=== PATIENT | female | born 2000 | race Caucasian/White ===

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

== ENCOUNTER 2020-01-10 15:11 | Inpatient (IN) | payer MEDICAID, SELFPAY ==
[2020-01-10 15:15] VITALS: BP 117/85; PULSE 108; RESP 14; TEMP 36.9; O2SAT 98; BMI 32.6
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
[2020-01-10 17:37] LABS: Add Urine Microscopic? NO
[2020-01-10 17:52] LABS: Bilirubin Urine Neg (Negative); Blood Urine Neg (Negative); Glucose Urine UA Norm (Normal); Ketones Urine 1+ (Negative); Leukocyte Esterase Urine Negative (Negative); Nitrate Urine Negative (Negative); Protein Urine Neg (Negative); Specific Gravity, Urine 1.015 (1.005-1.030); Urine Appearance Clear (CLEAR); Urine Color Yellow (Yellow); Urobilinogen Urine 1 mg/dL (Negative); pH Urine 6 (5-7)
[2020-01-10 18:00] LABS: Amphetamines Screen Urine Negative (Negative); Barbiturates Screen Urine Negative (Negative); Benzodiazepines Screen Urine Negative (Negative); Cocaine Screen Urine Negative (Negative); Opiate Screen Urine Negative (Negative); PCP Screen Urine Negative (Negative); THC Screen Urine Negative (Negative)
[2020-01-10 18:15] LABS: Alanine Aminotransferase 35 U/L (0-33); Albumin Level 4.5 g/dL (3.5-5.2); Alkaline Phosphatase 72 IU/L (35-105); Anion Gap 16.9 (5-19); Aspartate Amino Transferase 32 U/L (0-32); Blood Urea Nitrogen 9 mg/dL (6-20); Calcium 9.4 mg/dL (8.5-10.5); Carbon Dioxide 22 mmol/L (22-29); Chloride 105 mmol/L (98-107); Globulin 2.3 g/dL (1.3-4.6); Glomerular Filtration Rate 158.9 mL/min (90-130); Glucose 95 mg/dL (65-115); Osmolality Calculated 288 mOsm/kg (285-295); Potassium 3.9 mmol/L (3.5-5.1); Sodium 140 mmol/L (136-145); Total Bilirubin 0.3 mg/dL (0.15-1.2); Total Protein 6.8 g/dL (6.6-8.7)
[2020-01-10 18:20] LABS: Acetaminophen < 5.0 ug/mL (10-30); Alcohol Level < 10 mg/dL (0-10); Salicylate < 0.3 mg/dL (3-10)
[2020-01-10 18:28] LABS: Basophils % 0.4 %; Eosinophils # 0.2 10^3/uL (0.0-0.8); Eosinophils % 2.5 %; Hematocrit 39.5 % (37.0-47.0); Hemoglobin 12.7 g/dL (11.5-15.3); Lymphocytes # 3.7 10^3/uL (1.5-6.5); Lymphocytes % 43.1 %; Mean Corpuscular HGB Conc 32.2 g/dL (30.0-36.0); Mean Corpuscular Hemoglobin 29.8 pg (28.0-34.0); Mean Corpuscular Volume 92.7 fL (81-99); Mean Platelet Volume 11.5 fL (7.4-10.4); Monocytes # 0.5 10^3/uL (0.2-0.9); Monocytes % 5.4 %; Neutrophils # 4.09 10^3/uL (1.8-8.0); Neutrophils % 48.2 %; Nucleated Red Blood Cells % 0 %; Platelet Count 232 10^3/cmm (130-400); Red Blood Count 4.26 10^6/uL (4.1-5.3); Red Cell Distribution Width 12.5 % (12.1-15.1); White Blood Count 8.5 10^3/uL (4.5-13.0)
[2020-01-10 19:06] VITALS: PULSE 133; O2SAT 98
[2020-01-10 19:46] LABS: HCG Qualitative Urine. Negative (Negative)
[2020-01-10 20:46] VITALS: BP 118/85; PULSE 115; O2SAT 96
[2020-01-10 20:52] VITALS: BP 118/85; PULSE 115; O2SAT 97
[2020-01-10 22:00] VITALS: BP 135/79; PULSE 100; RESP 18; TEMP 36.9; O2SAT 97
--- NOTE | 2020-01-11 00:57 | PC.NURSE ---
Skin assessment revealed scar on left knee and scars on top of both feet.
[2020-01-11 06:00] VITALS: BP 120/74; PULSE 79; RESP 15; TEMP 36.4; O2SAT 94
[2020-01-11] MEDS: acetaminophen 325 mg Tablet 650 MG PO (07:45)
[2020-01-11] MEDS: cetirizine 10 mg Tablet PO (08:19)
[2020-01-11] MEDS: famotidine 20 mg Tablet PO (08:19)
[2020-01-11] MEDS: divalproex DR 500 mg Tablet PO ×2 (08:19→16:51)
[2020-01-11] MEDS: risperiDONE 2 mg Tablet PO ×2 (08:19→16:51)
[2020-01-11] MEDS: BuSPIRONE 10 mg Tablet PO ×2 (08:19→16:50)
[2020-01-11] MEDS: venlafaxine ER (24HR) 150 mg Capsule PO (08:19)
[2020-01-11 13:28] VITALS: BP 117/78; PULSE 96; RESP 18; TEMP 36.9
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
[2020-01-11] MEDS: loperamide 2 mg Capsule PO (17:07)
--- NOTE | 2020-01-11 17:32 | PC.NURSE ---
PATIENT C/O DIARRHEA. OBSERVED LOOSE STOOL IN TOILET. IMODIUM 2MG ADMINISTERED. WILL MONITOR FOR DRUG EFFECTIVENESS
[2020-01-11 19:50] VITALS: BP 108/74; PULSE 77; RESP 16; TEMP 36.9; O2SAT 95
[2020-01-12 06:00] VITALS: BP 107/72; PULSE 83; RESP 17; TEMP 37.1; O2SAT 96
[2020-01-12] MEDS: famotidine 20 mg Tablet PO (07:45)
[2020-01-12] MEDS: BuSPIRONE 10 mg Tablet PO ×2 (07:45→21:03)
[2020-01-12] MEDS: divalproex DR 500 mg Tablet PO ×2 (07:45→21:03)
[2020-01-12] MEDS: risperiDONE 2 mg Tablet PO ×2 (07:46→21:03)
[2020-01-12] MEDS: cetirizine 10 mg Tablet PO (07:46)
[2020-01-12] MEDS: venlafaxine ER (24HR) 150 mg Capsule PO (07:46)
[2020-01-12 12:39] VITALS: BP 130/84; PULSE 94; RESP 18; TEMP 36.9; O2SAT 97
--- NOTE | 2020-01-12 15:08 | P.PN_ITS ---
Subjective NPU Subjective: Interval history: Jeannette presents today continuing to have absolutely no insight into the magnitude of her behavior and its impact. She continued to lament about not being able to go home sooner and not seeming to grasp this sheet writer's cystoscopy explained to her that given that the intensity of her behavior it is going to require us taking her time and looking at her medication and making sure that we are creating an environment that she can make better choices. We discussed that we would get a trough level Depakote this evening and increase her Depakote if it is not deeply therapeutic. Additionally will be discussing the risk benefits alternatives of increasing her risk recall with her guardian. Mental Status Exam MSE Comments: This is an obese white female with limited dress, grooming and eye contact. No abnormal movements except for mild psychomotor retardation. Cooperative with exam in no acute distress. Speech was normal rate and volume with some slight dysarthria, and childlike. Mood described as good, affect congruent. Thought process organized. Thought content: Patient denied suicidal or homicidal ideations, there were no delusions reported or noted, she denied any auditory or visual 6. Attention and concentration appeared intact and mem ory was unreliable but none were formally tested. She is alert and oriented x3. Insight and judgment are impaired, impulse control is impaired and intellectual ability is impaired. Vitals/I&O/Wt Last Vital Signs Temp 98.9 F 01/12/20 20:00 Pulse 65 01/12/20 20:00 Resp 17 01/12/20 20:00 BP 104/70 01/12/20 20:00 Pulse Ox 96 01/12/20 20:00 Data NPU : 01/10/20 18:00 01/10/20 17:15 A&P Additional A&P Information (1) Laceration of skin of knee: (2) Environmental allergies: (3) Adjustment disorder with mixed disturbance of emotions and conduct: (4) Impulse control disorder in adult: (5) Intellectual disability: This is a 19-year-old white female with significant intellectual disability and limited impulse control with intermittent explosive presentation who presents reporting that she is fine now and desiring to be discharged. 1. Continue current medication. We will get Depakote level prior to her 9 PM dosing tonight and increase her Depakote in the morning if not clearly therapeutic and also discussed increasing the Risperdal with her guardian. 2. Encouraged individual, group and milieu therapy. 3. Continue every 15 minute checks for safety. 4. Evaluate and make changes to allow for safe return to the [facility]. Involuntary Hold Information 96 Hour Hold: 96 Hour Involuntary Admission: No 96 Hour Hold Ending Date: 12/10/19 96 Hour Hold Ending Time: 18:30 Attestations NPU Medical Necessity Statement*: Inpatient hospitalization is medically necessary and the clinically appropriate intervention at this time. We will monitor medications and make changes as indicated. Likely length of stay 2-4 days. 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
[2020-01-12 20:00] VITALS: BP 104/70; PULSE 65; RESP 17; TEMP 37.2; O2SAT 96
[2020-01-12 20:59] LABS: Valproic Acid Level 58.3 ug/mL (50-100)
[2020-01-12] MEDS: trazodone 50 mg Tablet PO (21:03)
[2020-01-13 06:00] VITALS: BP 103/65; PULSE 73; RESP 17; TEMP 37.3; O2SAT 95
[2020-01-13] MEDS: venlafaxine ER (24HR) 150 mg Capsule PO (07:58)
[2020-01-13] MEDS: famotidine 20 mg Tablet PO (07:58)
[2020-01-13] MEDS: risperiDONE 2 mg Tablet PO ×2 (07:59→19:48)
[2020-01-13] MEDS: cetirizine 10 mg Tablet PO (07:59)
[2020-01-13] MEDS: BuSPIRONE 10 mg Tablet PO ×2 (07:59→19:48)
[2020-01-13] MEDS: divalproex DR 500 mg Tablet 1000 MG PO (07:59)
[2020-01-13 14:00] VITALS: BP 131/82; PULSE 98; RESP 17; TEMP 36.3; O2SAT 97
--- NOTE | 2020-01-13 15:34 | P.PN_ITS ---
Subjective NPU Subjective: Interval history: Jeannette presents today much as she has every day with no real signs of any distress only indicators of her level of diminished insight. She continues asked if she can be discharged and why she has to stay another day. Each day I recounted the transgressions of her prehospitalization and the concerns that her [facility]L might have for safety given her behavior. We discussed the fact that the plan is to maximize her medication while here and that thus far we have increased her Depakote and plan to discuss increasing her risk for daughter with her guarding. She is eating and sleeping fine. Mental Status Exam MSE Comments: This is an obese white female with adequate dress, grooming and eye contact. No abnormal movements. Cooperative with exam in no acute distress. Speech was normal rate and volume with some slight dysarthria, and childlike. Mood described as good, affect congruent. Thought process organized. Thought content: Patient denied suicidal or homicidal ideations, there were no delusions reported or noted, she denied any auditory or visual hallucinations. Attention and concentration appeared intact and memory was unreliable but none were formally tested. She is alert and oriented x3. Insight and judgment are impaired, impulse control is impaired and intellectual ability is impaired. Vitals/I&O/Wt Last Vital Signs Temp 98.3 F 01/13/20 20:23 Pulse 75 01/13/20 20:23 Resp 17 01/13/20 20:23 BP 100/66 01/13/20 20:23 Pulse Ox 95 01/13/20 20:23 Data NPU : 01/10/20 18:00 01/10/20 17:15 A&P Additional A&P Information (1) Laceration of skin of knee: (2) Environmental allergies: (3) Adjustment disorder with mixed disturbance of emotions and conduct: (4) Impulse control disorder in adult: (5) Intellectual disability: This is a 19-year-old white female with significant intellectual disability and limited impulse control with intermittent explosive presentation who presents reporting that she is fine now and desiring to be discharged. 1. Continue current medication. Depakote level slightly therapeutic, we will increase her dose to 1000 mg in the morning and 500 mg at night and discuss increasing the Risperdal with her guardian. 2. Encouraged individual, group and milieu 3. Continue every 15 minute checks for safety. 4. Evaluate and make changes to allow for safe return to the IS[facility]. Involuntary Hold Information 96 Hour Hold: 96 Hour Involuntary Admission: No 96 Hour Hold Ending Date: 12/10/19 96 Hour Hold Ending Time: 18:30 Attestations NPU Medical Necessity Statement*: Inpatient hospitalization is medically necessary and the clinically appropriate intervention at this time. We will monitor med ications and make changes as indicated. Likely length of stay 2-3 days. 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
[2020-01-13] MEDS: divalproex DR 500 mg Tablet PO (19:48)
[2020-01-13] MEDS: trazodone 50 mg Tablet PO (19:49)
[2020-01-13 20:23] VITALS: BP 100/66; PULSE 75; RESP 17; TEMP 36.8; O2SAT 95
[2020-01-14 06:00] VITALS: BP 121/80; PULSE 71; RESP 16; TEMP 36.6; O2SAT 95
[2020-01-14] MEDS: divalproex DR 500 mg Tablet 1000 MG PO (07:31)
[2020-01-14] MEDS: famotidine 20 mg Tablet PO (07:31)
[2020-01-14] MEDS: venlafaxine ER (24HR) 150 mg Capsule PO (07:31)
[2020-01-14] MEDS: risperiDONE 2 mg Tablet PO (07:32)
[2020-01-14] MEDS: BuSPIRONE 10 mg Tablet PO ×2 (07:32→20:32)
[2020-01-14] MEDS: cetirizine 10 mg Tablet PO (07:32)
[2020-01-14 12:19] VITALS: BP 133/79; PULSE 103; RESP 18; TEMP 36.7; O2SAT 95
--- NOTE | 2020-01-14 15:03 | P.PN_ITS ---
Subjective NPU Subjective: Interval history: Jeannette presents today reporting that she like to know if she can go home. We have been working with her [facility] which will take her back. Also reached out to her guardian and discussed the plan to increase her Risperdal today. She was eager to leave but agreeable to the change. She endorsed that she is eating and sleeping fine and continues to endorse that she will not harm herself or anyone else we continue to stress to her that we are hopeful to make changes in her medications that will help her have some better impulse control. Mental Status Exam MSE Comments: This is an obese white female with adequate dress, grooming and eye contact. No abnormal movements. Cooperative with exam in no acute distress. Speech was normal rate and volume with some slight dysarthria, and childlike. Mood described as good, affect congruent. Thought process o rganized. Thought content: Patient denied suicidal or homicidal ideations, there were no delusions reported or noted, she denied any auditory or visual hallucinations. Attention and concentration appeared intact and memory was unreliable but none were formally tested. She is alert and oriented x3. Insight and judgment are impaired, impulse control is impaired and intellectual ability is impaired. Vitals/I&O/Wt Last Vital Signs Temp 98.1 F 01/14/20 12:19 Pulse 103 H 01/14/20 12:19 Resp 18 01/14/20 12:19 BP 133/79 01/14/20 12:19 Pulse Ox 95 01/14/20 12:19 Data NPU : 01/10/20 18:00 01/10/20 17:15 A&P Additional A&P Information (1) Laceration of skin of knee: (2) Environmental allergies: (3) Adjustment disorder with mixed disturbance of emotions and conduct: (4) Impulse control disorder in adult: (5) Intellectual disability: This is a 19-year-old white female with significant intellectual disability and limited impulse control with intermittent explosive presentation who presents reporting that she is fine now and desiring to be discharged. 1. Continue current medication. Increase Risperdal to 3 mg p.o. twice daily 2. Encouraged individual, group and milieu 3. Continue every 15 minute checks for safety. 4. Plan for discharge on Sunday. Involuntary Hold Information 96 Hour Hold: 96 Hour Involuntary Admission: No 96 Hour Hold Ending Date: 12/10/19 96 Hour Hold Ending Time: 18:30 Attestations NPU Medical Necessity Statement*: Inpatient hospitalization is medically necessary and the clinically appropriate intervention at this time. We will monitor medications and make changes as indicated. Plan for discharge on Sunday. 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
[2020-01-14 20:09] VITALS: BP 112/70; PULSE 66; RESP 17; TEMP 36.4; O2SAT 95
[2020-01-14] MEDS: risperiDONE 2 mg Tablet 3 MG PO (20:43)
[2020-01-14] MEDS: divalproex DR 500 mg Tablet PO (20:45)
[2020-01-15 06:00] VITALS: BP 98/64; PULSE 86; RESP 17; TEMP 36.8; O2SAT 95
[2020-01-15] MEDS: divalproex DR 500 mg Tablet 1000 MG PO (08:50)
[2020-01-15] MEDS: cetirizine 10 mg Tablet PO (08:50)
[2020-01-15] MEDS: risperiDONE 2 mg Tablet 3 MG PO ×2 (08:50→21:27)
[2020-01-15] MEDS: BuSPIRONE 10 mg Tablet PO ×2 (08:50→21:27)
[2020-01-15] MEDS: venlafaxine ER (24HR) 150 mg Capsule PO (08:50)
[2020-01-15] MEDS: famotidine 20 mg Tablet PO (08:50)
[2020-01-15 14:00] VITALS: BP 130/84; PULSE 88; RESP 20; TEMP 37.1; O2SAT 98
--- NOTE | 2020-01-15 15:24 | P.PN_ITS ---
Subjective NPU Subjective: Interval history: Presents a continuing to endorse that she is tolerating the increase in her Depakote and now reporting that she is tolerating the increase in her Risperdal. Contact with her guardian has clarified the situation as far as returning to the ISL safely and plans moving forward. She continues to focus on the date time and circumstances of discharge. She continues to report that she will not be violent towards others. She continues to contract for safety and we discussed the likelihood of discharge tomorrow. Mental Status Exam MSE Comments: This is an obese white female with adequate dress, grooming and eye contact. No abnormal movements. Cooperative with exam in no acute distress. Speech was normal rate and volume with some slight dysarthria, and childlike. Mood described as good, affect congruent. Thought process organized. Thought content: Patient denied suicidal or homicidal ideations, there were no delusions reported or noted, she denied any auditory or visual hallucinations. Attention and concentration appeared intact and memory was unreliable but none were formally tested. She is alert and oriented x3. Insight and judgment are impaired, impulse control is impaired and intellectual ability is impaired. Vitals/I&O/Wt Last Vital Signs Temp 98.7 F 01/15/20 14:00 Pulse 88 01/15/20 14:00 Resp 20 H 01/15/20 14:00 BP 130/84 01/15/20 14:00 Pulse Ox 98 01/15/20 14:00 Data NPU : 01/10/20 18:00 01/10/20 17:15 A&P Additional A&P Information (1) Laceration of skin of knee: (2) Environmental allergies: (3) Adjustment disorder with mixed disturbance of emotions and conduct: (4) Impulse control disorder in adult: (5) Intellectual disability: This is a 19-year-old white female with significant intellectual disability and limited impulse control with intermittent explosive presentation who presents reporting that she is fine now and desiring to be discharged. 1. Continue current medication. 2. Encouraged individual, group and milieu 3. Continue every 15 minute checks for safety. 4. Plan for discharge tomorrow. Involuntary Hold Information 96 Hour Hold: 96 Hour Involuntary Admission: No 96 Hour Hold Ending Date: 12/10/19 96 Hour Hold Ending Time: 18:30 Attestations NPU Medical Necessity Statement*: Inpatient hospitalization is medically necessary and the clinically appropriate intervention at this time. We will monitor medications and make changes as indicated. Plan for discharge tomorrow when her staff can pick her up. 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
[2020-01-15 19:32] VITALS: BP 118/76; PULSE 83; RESP 17; TEMP 36.6; O2SAT 95
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
[2020-01-15] MEDS: divalproex DR 500 mg Tablet PO (21:26)
[2020-01-15] MEDS: hyDROXYzine 25 mg Capsule 50 MG PO (21:27)
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
[2020-01-16 05:58] VITALS: BP 116/82; PULSE 116; RESP 18; TEMP 36.8; O2SAT 96
[2020-01-16 06:18] VITALS: BP 116/82; PULSE 116; RESP 18; TEMP 36.8; O2SAT 96
[2020-01-16] MEDS: blistex lip oint 7 gm Tube 1 APPLIC TOPICAL (07:01)
[2020-01-16] MEDS: BuSPIRONE 10 mg Tablet PO (07:54)
[2020-01-16] MEDS: famotidine 20 mg Tablet PO (07:54)
[2020-01-16] MEDS: risperiDONE 2 mg Tablet 3 MG PO (07:54)
[2020-01-16] MEDS: venlafaxine ER (24HR) 150 mg Capsule PO (07:54)
[2020-01-16] MEDS: divalproex DR 500 mg Tablet 1000 MG PO (07:55)
[2020-01-16] MEDS: cetirizine 10 mg Tablet PO (07:55)
== END 2020-01-16 14:18 | disposition home or self-care (01) | DRG 882 ==
LOC: ER 16:21 → NP 20:48
PROVIDERS: Admitting Provider Psychiatry & Neurology Psychiatry; Emergency Provider Family Medicine; PCP Family Medicine; Visit Provider Psychiatry & Neurology Psychiatry
DX: F43.25 Adjustment disorder with mixed disturbance of emotions and conduct (principal); R45.851 Suicidal ideations; F63.9 Impulse disorder, unspecified; F79 Unspecified intellectual disabilities
CPT/HCPCS: 12345; 36415; 80053; 80164; 80306; 80307; 81003; 81025; 85025; 99284; 99291

== ENCOUNTER 2020-02-02 13:37 | Outpatient (CLI) | payer MEDICAID, SELFPAY | END 2020-02-02 13:38 | disposition home or self-care (01) | LOC: RAD 13:40 | PROVIDERS: PCP Family Medicine; Visit Provider Family Medicine | DX: R10.30 Lower abdominal pain, unspecified (principal); R10.31 Right lower quadrant pain | CPT/HCPCS: 80053; 81003; 84443; 85025; 86140; 87077; 87086; 87184 ==